=== PATIENT | female | born 1960 | race Caucasian/White ===

== ENCOUNTER 2021-08-01 07:53 | Outpatient (CLI) | payer BC ==
--- NOTE | 2021-08-01 08:12 | XRAY Report ---
PROCEDURE: Finger(s) LT INDICATIONS: L INDEX FINGER PX TECHNIQUE: AP hand, 2 views of the second finger(s) acquired. COMPARISON: None FINDINGS: Bones: Subtle age indeterminant oblique fracture through proximal shaft of second distal phalanx is s een. No other fracture or dislocation. No suspicious bony lesions. Soft tissues: Mild soft tissue swelling surrounding distal portion of second finger is seen. No suspi cious soft tissue calcifications. IMPRESSION: Subtle age indeterminant oblique fracture through proximal shaft/base of second distal phalanx withou t displacement or angulation. Reviewed by: Harley Donahue MD on 08/01/2021 8:11 AM PDT Approved by: Harley Donahue MD on 08/01/2021 8:11 AM PDT Station ID: [id number]
== END 2021-08-01 23:59 | disposition home or self-care (01) ==
LOC: DI.N 07:53
PROVIDERS: ATTEND Family Medicine
DX: S62.661A Nondisplaced fracture of distal phalanx of left index finger, initial encounter for closed fracture (principal)

== ENCOUNTER 2021-10-25 17:44 | Outpatient (CLI) | payer BC ==
[2021-10-25 21:00] LABS: HCT - HEMATOCRIT 43.2 % (37.0-47.0); MEAN CORPUSCULAR HEMOGLOBIN 28.5 pg (27.0-31.0); MEAN CORPUSCULAR HGB CONC 32.4 g/dL (32.0-36.0); MEAN PLATELET VOLUME 11.5 fL (7.9-10.8); RED BLOOD COUNT 4.91 10^6/uL (4.20-5.40); RED CELL DISTRIBUTION WIDTH 12.6 % (12.0-15.0); WHITE BLOOD COUNT 6.3 x10^3/uL (4.8-10.8)
[2021-10-25 21:07] LABS: ALBUMIN 4.4 g/dL (3.2-5.5); ALBUMIN/GLOBULIN RATIO 1.3 (1.0-2.2); BILIRUBIN,TOTAL 0.6 mg/dL (0.2-1.0); CALCIUM 9.5 mg/dL (8.5-10.3); CREATININE 0.8 mg/dL (0.4-1.0); POTASSIUM 3.8 mmol/L (3.5-5.0); TOTAL PROTEIN 7.7 g/dL (6.7-8.2)
[2021-10-25 21:17] LABS: ESTIMATED AVERAGE GLUCOSE 120 mg/dL (70-100); HEMOGLOBIN A1c% 5.8 % (4.27-6.07)
== END 2021-10-25 23:59 | disposition home or self-care (01) ==
LOC: LAB.N 17:44
PROVIDERS: ATTEND Physician Assistant Medical
DX: I10 Essential (primary) hypertension (principal); Z20.822 Contact with and (suspected) exposure to COVID-19
CPT/HCPCS: 36415; 80053; 83036; 84443; 85027

== ENCOUNTER 2022-05-09 10:43 | Outpatient (CLI) | payer BC ==
--- NOTE | 2022-05-09 11:18 | XRAY Report ---
PROCEDURE: Lumbar Spine 2 View INDICATIONS: LOW BACK PAIN TECHNIQUE: 2 views of the lumbar spine were acquired. COMPARISON: None. FINDINGS: Bones: Postoperative changes of pedicular screw and kathy fixation of L4, L5, and S1. Anterior discecto my and fusion is also seen. 5 gmz-qot-jccimlg vertebrae are present. There is normal bony alignment. No vertebral body compression fractures. No suspicious bony lesions. Soft tissues: Overlying bowel gas pattern is normal. No suspicious soft tissue calcifications. IMPRESSION: 1. Postoperative changes spanning from L4 through S1 with no radiographic complication. 2. 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 Reviewed by: Oli De La Garza on 05/09/2022 11:17 AM PDT Approved by: Oli De La Garza on 05/09/2022 11:17 AM PDT Station ID: [id number]
== END 2022-05-09 10:44 | disposition home or self-care (01) ==
LOC: DI 10:43
PROVIDERS: ATTEND Student in an Organized Health Care Education/Training Program
DX: M47.814 Spondylosis without myelopathy or radiculopathy, thoracic region (principal); Z98.1 Arthrodesis status

== ENCOUNTER 2022-07-15 15:36 | Emergency (ER) | payer BC ==
[2022-07-15 15:54] VITALS: BP 151/94
[2022-07-15] MEDS ORDERED: methocarbamoL 500 MG TABLET PO STA (16:11)
[2022-07-15] MEDS ORDERED: KETOROLAC 60 MG/2 ML VIAL IM STA (16:11)
[2022-07-15] MEDS ORDERED: HYDROmorphone 1 MG/ML CARPUJECT IM STA (16:11)
--- NOTE | 2022-07-15 16:16 | ED Physician Documentation ---
PD HPI BACK PAIN - Stated complaint Stated Complaint: BACK PX - Chief complaint Chief Complaint: Back Pain - History obtained from History obtained from: Patient - History of Present Illness Timing - duration: Days (2) Timing - details: Gradual onset Pain level max: 10 Pain level now: 10 Location: Lower, Right Quality: Pain, Spasm, Similar to prior episodes Associated symptoms: No: Fever, Weakness, Numbness, Incontinent of urine, Unable to urinate Improves with: Rest Worsened by: Movement, Lifting Contributing factors: Lifting, Twisting, Out of meds. No: Trauma, Anticoagu lated, Cancer, IVDA - Additional information Additional information: Patient is a 61-year-old female with a history of back fusion, L4 L5-S1. This was about 8 years ago. She states that she has been on "medical leave". She states that she went back to work 2 days ago and since that time has had gradually increasing pain in her back. Mainly on the right. She had been on oxycodone and tizanidine from her doctor, but does not have any more medications at home. Worse with lifting, bending, twisting. Denies any trauma. Not anticoagulated. No IV drug use. Review of Systems Ten Systems: 10 systems reviewed and negative Constitutional: denies: Fever, Chills Nose: denies: Rhinorrhea / runny nose, Congestion Throat: denies: Sore throat Cardiac: denies: Chest pain / pressure, Palpitations Respiratory: denies: Dyspnea, Cough, Wheezing GI: denies: Abdominal Pain, Nausea, Vomiting, Diarrhea : denies: Dysuria, Frequency, Hesitancy, Incontinent Skin: denies: Rash Musculoskeletal: denies: Neck pain Neurologic: denies: Focal weakness, Numbness, Headache PD PAST MEDICAL HISTORY - Past Medical History Past Medical History: No Other Past Medical History: chronic back pain - Past Surgical History Past Surgical History: Yes Ortho: Spine surgery - Present Medications Home Medications: Ambulatory Orders Medication Instructions Recorded Confirmed Meloxicam [Mobic] 7.5 mg PO BID PRN #20 tablet 07/15/22 Ondansetron Odt [Zofran] 4 mg TL Q6H PRN #10 tablet 07/15/22 Oxycodone HCl/Acetaminophen 1 - 2 each PO Q6H PRN #14 tablet 07/15/22 [Percocet 5-325 mg Tablet] methocarbamoL [Robaxin] 500 mg PO Q6H PRN #20 tablet 07/15/22 - Allergies Allergies/Adverse Reactions: Allergies Allergy/AdvReac Type Severity Reaction Status Date / Time No Known Drug Allergies Allergy Verified 07/15/22 15:54 PD ED PE NORMAL - Vitals Vital signs reviewed: Yes - General General: Alert and oriented X 3, No acute distress - HEENT HEENT: Moist mucous membranes - Neck Neck: Supple, no meningeal sign - Cardiac Cardiac: RRR, Strong equal pulses - Respiratory Respiratory: No respiratory distress, Clear bilaterally - Abdomen Abdomen: Soft, Non tender, Non distended - Back Back: No spinal TTP (No midline tenderness to palpation. Paraspinal spasm right lower lumbar. ) - Derm Derm: Warm and dry - Extremities Extremities: No edema, No calf tenderness / cord - Neuro Neuro: Alert and oriented X 3, No motor deficit, No sensory deficit, Other (Normal bilateral lower extremity patellar and ankle jerk reflexes. Normal great toe extension bilaterally. no saddle anesthesia) - Psych Psych: Normal mood, Normal affect Results - Vitals Vitals: Vital Signs - 24 hr 07/15/22 15:50 Temperature 36.4 C L Heart Rate 79 Respiratory 16 Rate Blood Pressure 151/94 H O2 Saturation 96 Oxygen O2 Source Room air - Rads (name of study) L spine xray Radiology: Final report received, EMP read contemporaneously, See rad report PD MEDICAL DECISION MAKING - ED course Complexity details: reviewed results, re-evaluated patient, considered differential (No cauda equina, no spinal epidural abscess, no fracture, no aortic dissection or evidence of aneursym rupture), d/w patient ED course: 61-year-old female presents to the emergency department with low back spasm. Pain and spasm are well controlled after Dilaudid, Toradol, Valium and Robaxin. We will place on pain medication for home. No acute findings on x-ray. Encourage gentle stretching. We will keep her off work until she is cleared by her doctor. No evidence of cauda equina, epidural abscess. No indication for advanced imaging. No paralysis. Patient counseled regarding signs and symptoms for which I believe and urgent re-evaluation would be necessary. Patient with good understanding of and agreement to plan and is comfortable going home at this time This document was made in part using voice recognition software. While efforts are made to proofread this document, sound alike and grammatical errors may occur. Departure - Departure Disposition: 01 Home, Self Care Clinical Impression: Back muscle spasm Condition: Good Instructions: ED Spasm Back No Trauma Follow-Up: JANES OAKES PA [Primary Care Provider] - Within 3 Days Prescriptions: Meloxicam [Mobic] 7.5 mg PO BID PRN #20 tablet PRN Reason: Pain Oxycodone HCl/Acetaminophen [Percocet 5-325 mg Tablet] 1 - 2 each PO Q6H PRN #14 tablet PRN Reason: pain methocarbamoL [Robaxin] 500 mg PO Q6H PRN #20 tablet PRN Reason: muscle spasm Ondansetron Odt [Zofran] 4 mg TL Q6H PRN #10 tablet PRN Reason: Nausea / Vomiting Comments: Please continue to gently stretch her back at home. Please follow-up with your doctor for further care. You will need to be off work again until released by your doctor. Your prescriptions were sent to the [facility] pharmacy in [place] I am prescribing a short course of narcotic pain medication for you. These are potentially dangerous and addictive medications that should be used carefully. These medications may constipate you. Take an iqhg-sxh-aravgco stool softener (docusate) twice daily with plenty of water while taking these medications. If you go 24 hours without a bowel movement, take fcok-nze-mzugbzw miralax, per package instructions. Do not drink or drive while taking these medications. If you received narcotic or sedating medications while in the emergency department, do not drive for 24 hours. Store this medication in a safe, secure place and out of reach of children. It is a violation of federal law to give or sell this medication to another person or to use in a manner other than prescribed. The ED will not refill narcotic prescriptions, including prescriptions lost or stolen. To dispose of unwanted medications: 1. [facility] [address] in [place] has a medication drop box. They accept prescription medications (in pill form) Friday through Friday 9:00 a.m. to 5:00 p.m. 2. The [facility] [employer] accepts prescription medications (in pill form only) for disposal year round. Call for more information. 3. Contact the [facility] for the next [facility] sponsored prescription drug collection event. , [phone], or [phone]; Forms: Activity restrictions Discharge Date/Time: 07/15/22 18:23
[2022-07-15] MEDS ORDERED: ONDANSETRON ODT 4 MG TABLET TL STA (17:05)
[2022-07-15] MEDS ORDERED: diazePAM 5 MG TABLET PO STA (17:07)
--- NOTE | 2022-07-15 17:39 | XRAY Report ---
PROCEDURE: Lumbar Spine 2 View INDICATIONS: back pain, h/o fusion TECHNIQUE: 2 views of the lumbar spine were acquired. COMPARISON: Lumbar spine radiographs 05/09/2022. FINDINGS: Bones: Post surgical changes again seen extending from L4 through S1. Metallic hardware is intact. Os seous alignment is unchanged. 5 tvs-gro-jyzwhjm vertebrae are present. No acute vertebral body comp ression fractures. No suspicious bony lesions. Soft tissues: Overlying bowel gas pattern is normal. No suspicious soft tissue calcifications. IMPRESSION: Stable postsurgical changes in the lower lumbar spine. No acute osseous abnormality. Reviewed by: Иван Chavez MD on 07/15/2022 4:38 PM TERRENCE Approved by: Иван Chavez MD on 07/15/2022 4:38 PM TERRENCE Station ID: [id number]
[2022-07-15] MEDS ORDERED: oxyCODONE/ACET 5/325 Prepack 4 PO STA (18:12)
== END 2022-07-15 18:23 | disposition home or self-care (01) ==
LOC: ED 15:36
DX: M62.830 Muscle spasm of back (principal)
CPT/HCPCS: 72100; 96372; 99284; A9270; J1170; Q0162

== ENCOUNTER 2023-01-16 07:40 | Emergency (ER) | payer BC ==
[2023-01-16 07:53] VITALS: BP 141/115
--- NOTE | 2023-01-16 08:25 | ED Physician Documentation ---
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 She back pain subsequently and increases with attempts at resuming work level of activity.) Review of Systems Constitutional: denies: Fever, Chills Cardiac: denies: Chest pain / pressure, Palpitations Respiratory: denies: Dyspnea, Cough GI: denies: Abdominal Pain, Nausea, Vomiting Skin: denies: Rash, Lesions Neurologic: denies: Focal weakness, Numbness PD PAST MEDICAL HISTORY - Past Medical History Cardiovascular: None Musculoskeletal: Chronic back pain - Past Surgical History Past Surgical History: Yes Ortho: Spine surgery - Present Medications Home Medications: Ambulatory Orders Medication Instructions Recorded Confirmed Meloxicam [Mobic] 7.5 mg PO BID PRN #20 tablet 07/15/22 Ondansetron Odt [Zofran] 4 mg TL Q6H PRN #10 tablet 07/15/22 Oxycodone HCl/Acetaminophen 1 - 2 each PO Q6H PRN #14 tablet 07/15/22 [Percocet 5-325 mg Tablet] methocarbamoL [Robaxin] 500 mg PO Q6H PRN #20 tablet 07/15/22 Acetaminophen [Acetaminophen Extra 500 mg PO QID PRN #50 tablet 01/16/23 Strength] Meloxicam [Mobic] 7.5 mg PO BID 10 Days #20 tablet 01/16/23 dexAMETHasone [Decadron] 4 mg PO DAILY #5 tablet 01/16/23 oxyCODONE [Roxicodone] 5 mg PO Q6H PRN #25 tablet 01/16/23 tiZANidine [Zanaflex] 4 mg PO Q8H PRN #30 tablet 01/16/23 - Allergies Allergies/Adverse Reactions: Allergies Allergy/AdvReac Type Severity Reaction Status Date / Time No Known Drug Allergies Allergy Verified 01/16/23 07:54 PD ED PE NORMAL - Vitals Vital signs reviewed: Yes - General General: Alert and oriented X 3, Well developed/nourished, Other (She seems more emotionally distraught than in pain per se but does have guarded range of motion of the back.) - Abdomen Abdomen: Soft, Non tender - Back Back: No spinal TTP, Other (tender right lower muscules lumbar area. ) - Derm Derm: Normal color, Warm and dry - Neuro Neuro: No motor deficit, No sensory deficit, Other (normal patellar reflexes. ) Results - Vitals Vitals: Vital Signs - 24 hr 01/16/23 07:47 Temperature 36.5 C Heart Rate 80 Respiratory 16 Rate Blood Pressure 141/115 H O2 Saturation 98 Oxygen O2 Source Room air PD Medical Decision Making - ED course Complexity details: considered differential (Has had low back pain previously and exacerbations when resumed work. Review of prior work restriction forms she has with her shows an episode in last January and May and September. She was off work for 2 months at a time each.), d/w patient ED course: Recurrent low back pain without any forceful injury. No red flags on the exam or history. We will treat with medications and work restriction. She has an ap pointment upcoming with her primary care for this but was unable to get an appointment before the . Can give work note for the the interval time. Departure - Departure Disposition: 01 Home, Self Care Clinical Impression: Acute exacerbation of chronic low back pain Condition: Stable Record reviewed to determine appropriate education?: Yes Instructions: ED Spasm Back No Trauma Follow-Up: JANES OAKES PA [Primary Care Provider] - Prescriptions: Acetaminophen [Acetaminophen Extra Strength] 500 mg PO QID PRN #50 tablet PRN Reason: Pain dexAMETHasone [Decadron] 4 mg PO DAILY #5 tablet Meloxicam [Mobic] 7.5 mg PO BID 10 Days #20 tablet oxyCODONE [Roxicodone] 5 mg PO Q6H PRN #25 tablet PRN Reason: Pain tiZANidine [Zanaflex] 4 mg PO Q8H PRN #30 tablet PRN Reason: Spasms Comments: He had massage and stretching and gentle range of motion are all good for the low back muscles. We can treat the flareup of the pain with a combination of anti-inflammatories and muscle relaxant and pain medicine. I would suggest trying Decadron steroid anti-inflammatory daily for the next 5 days initially and then after that changing to meloxicam 7.5 mg twice daily for couple of weeks. Be sure to take all of these with food. Also tizanidine muscle relaxant 3 times daily to help with spasms and stiffness. To this add Tylenol 500 mg 4 times daily for pain. Add oxycodone every 6 hours if needed for worse pain. I sent your prescriptions to [facility] pharmacy as you requested. Follow-up with your primary care on the as planned and sooner if they have an opening for an appointment. I gave you a work note for the next couple of weeks until seen on the . They can determine if any further is needed at that time. I am prescribing a short course of narcotic pain medication for you. These are potentially dangerous and addictive medications that should be used carefully. These medications may constipate you. Take an bcyi-ijz-yeltvha stool softener such as docusate twice daily with plenty of water while taking these medications. If you go 24 hours without a bowel movement, take zylh-pbh-extgwhx MiraLAX, per package instructions. Do not drink or drive while taking these medications. If you received narcotic or sedating medications while in the emergency department do not drive for 24 hours. Store this medication in a safe, secure place and out of reach of children. It is a violation of federal law to give or sell this medication to another person or to use in a manner other than prescribed. The ED will not refill narcotic prescriptions, including prescriptions lost or stolen. You can dispose of unwanted medications at the [facility]'s office or at several pharmacies such as [facility]. Forms: Activity restrictions Discharge Date/Time: 01/16/23 09:15
[2023-01-16] MEDS: ACETAMINOPHEN 325 MG TABLET PO STA (08:48)
[2023-01-16] MEDS: methocarbamoL 500 MG TABLET PO STA (08:48)
[2023-01-16] MEDS: KETOROLAC 30 MG/ML VIAL IM STA (08:49)
== END 2023-01-16 09:15 | disposition home or self-care (01) ==
LOC: ED 07:40
DX: M54.50 Low back pain, unspecified (principal); G89.29 Other chronic pain; Z79.899 Other long term (current) drug therapy
CPT/HCPCS: 96372; 99284; A9270

== ENCOUNTER 2023-04-30 12:30 | Outpatient (CLI) | payer BC, MEDICAID ==
--- NOTE | 2023-04-30 16:49 | XRAY Report ---
PROCEDURE: Foot 3 View LT INDICATIONS: ANKLE JOINT PAIN TECHNIQUE: 3 views of the foot were acquired. COMPARISON: None. FINDINGS: Bones: No fractures or dislocations. No suspicious bony lesions. A calcaneal spurs present. Soft tissues: No suspicious soft tissue calcifications or masses. IMPRESSION: No acute abnormality of the left foot. Reviewed by: Oli De La Garza on 04/30/2023 4:48 PM PDT Approved by: Oli De La Garza on 04/30/2023 4:48 PM PDT Station ID: [id number]
--- NOTE | 2023-05-01 11:46 | XRAY Report ---
PROCEDURE: Ankle 3 View LT INDICATIONS: ANKLE JOINT PAIN LEFT TECHNIQUE: 3 views of the ankle were acquired. COMPARISON: None. FINDINGS: Bones: No fractures or dislocations. Ankle mortise is normally aligned. No suspicious bony lesions . Mild osteoarthritic changes. Calcaneal spurring. Soft tissues: No tibiotalar joint effusion. Achilles tendon appears normal. Soft tissue swelling. IMPRESSION: 1. No acute bony abnormality. 2. Mild osteoarthritis. 3. Calcaneal spurring. 4. Soft tissue swelling. Reviewed by: Robin Joe MD on 05/01/2023 11:44 AM PDT Approved by: Robin Joe MD on 05/01/2023 11:44 AM PDT Station ID: [id number]
== END 2023-04-30 12:45 | disposition home or self-care (01) ==
LOC: DI.N 12:30
PROVIDERS: ATTEND Physician Assistant
DX: M19.072 Primary osteoarthritis, left ankle and foot (principal); M77.32 Calcaneal spur, left foot; R22.42 Localized swelling, mass and lump, left lower limb

== ENCOUNTER 2023-06-04 09:00 | Emergency (ER) | payer BC, MEDICAID ==
[2023-06-04] MEDS ORDERED: SODIUM CHLORIDE 0.9% 1,000 ML IV STA (09:19)
--- NOTE | 2023-06-04 09:21 | ED Physician Documentation ---
PD HPI ABD PAIN - Stated complaint Stated Complaint: FEMALE GI - Chief complaint Chief Complaint: Abd Pain - History obtained from History obtained from: Patient - Additional information Additional information: 62-year-old female with no significant past medical history presents by private vehicle from home for 3 to 4 days of gradually worsening right lower quadrant abdominal pain, worse when she moves her right leg. Associated nausea. States that she thought she might of pulled something but it has gotten gradually worse and is now unbearable. No previous abdominal surgeries. Review of Systems Constitutional: denies: Fever, Chills GI: reports: Abdominal Pain, Nausea. denies: Vomiting : denies: Dysuria, Frequency, Hesitancy Musculoskeletal: reports: Extremity pain. denies: Neck pain, Back pain PD PAST MEDICAL HISTORY - Past Medical History Cardiovascular: None Musculoskeletal: Chronic back pain - Past Surgical History Past Surgical History: Yes Ortho: Spine surgery - Present Medications Home Medications: Ambulatory Orders Medication Instructions Recorded Confirmed Meloxicam [Mobic] 7.5 mg PO BID PRN #20 tablet 07/15/22 Ondansetron Odt [Zofran] 4 mg TL Q6H PRN #10 tablet 07/15/22 Oxycodone HCl/Acetaminophen 1 - 2 each PO Q6H PRN #14 tablet 07/15/22 [Percocet 5-325 mg Tablet] methocarbamoL [Robaxin] 500 mg PO Q6H PRN #20 tablet 07/15/22 Acetaminophen [Acetaminophen Extra 500 mg PO QID PRN #50 tablet 01/16/23 Strength] Meloxicam [Mobic] 7.5 mg PO BID 10 Days #20 tablet 01/16/23 dexAMETHasone [Decadron] 4 mg PO DAILY #5 tablet 01/16/23 oxyCODONE [Roxicodone] 5 mg PO Q6H PRN #25 tablet 01/16/23 tiZANidine [Zanaflex] 4 mg PO Q8H PRN #30 tablet 01/16/23 Cyclobenzaprine [Flexeril] 10 mg PO TID PRN #20 tablet 06/04/23 Oxycodone HCl/Acetaminophen 1 - 2 each PO Q6H PRN #14 tablet 06/04/23 [Percocet 5-325 mg Tablet] cephALEXin [Keflex] 500 mg PO BID #10 cap 06/04/23 - Allergies Allergies/Adverse Reactions: Allergies Allergy/AdvReac Type Severity Reaction Status Date / Time No Known Drug Allergies Allergy Verified 01/16/23 07:54 PD ED PE NORMAL - Vitals Vital signs reviewed: Yes - General General: Alert and oriented X 3, Well developed/nourished, Other (in pain) - Cardiac Cardiac: RRR, Strong equal pulses - Respiratory Respiratory: No respiratory distress, Clear bilaterally - Abdomen Abdomen: Soft, Non tender - Derm Derm: Normal color, Warm and dry, No rash - Extremities Extremities: No deformity, No tenderness to palpate, No edema, Other (RLQ/R leg pain with movement, particularly internal rotation) - Neuro Neuro: Alert and oriented X 3, 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 2-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, No motor deficit, Normal speech Results - Vitals Vitals: Vital Signs - 24 hr 06/04/23 06/04/23 06/04/23 09:07 11:18 12:10 Temperature 36.8 C Heart Rate 66 67 59 L Respiratory 20 20 20 Rate Blood Pressure 147/94 H 157/81 H 140/73 H O2 Saturation 96 100 99 Oxygen O2 Source Room air - Labs Labs: Laboratory Tests 06/04/23 06/04/23 06/04/23 09:16 09:29 09:29 WBC 5.8 RBC 5.12 Hgb 14.6 Hct 44.0 MCV 85.9 MCH 28.5 MCHC 33.2 RDW 12.7 Plt Count 308 MPV 10.6 Neut # (Auto) 2.8 Lymph # (Auto) 2.3 [place] # (Auto) 0.5 Eos # (Auto) 0.2 Baso # (Auto) 0.0 Absolute Nucleated RBC 0.00 Nucleated RBC % 0.0 Sodium 139 Potassium 4.1 Chloride 105 Carbon Dioxide 29 Anion Gap 5.0 L BUN 13 Creatinine 0.8 Estimated GFR (MDRD) 73 L Glucose 110 H Calcium 9.6 Total Bilirubin 0.5 AST 19 ALT 27 Alkaline Phosphatase 76 Total Protein 7.7 Albumin 4.4 Globulin 3.3 Albumin/Globulin Ratio 1.3 Lipase 28 Urine Color YELLOW Urine Clarity HAZY Urine pH 5.5 Ur Specific [place] 1.025 Urine Protein NEGATIVE Urine Glucose (UA) NEGATIVE Urine Ketones NEGATIVE Urine Occult Blood NEGATIVE Urine Nitrite NEGATIVE Urine Bilirubin NEGATIVE Urine Urobilinogen 0.2 (NORMAL) Ur Leukocyte Esterase TRACE H Urine RBC None Seen Urine WBC 4-5 Ur Squamous Epith Cells MOD Squamous H Urine Bacteria Few Ur Microscopic Review INDICATED Urine Culture Comments NOT INDICATED PD Medical Decision Making - ED course Complexity details: reviewed results, re-evaluated patient, considered differential, d/w patient ED course: Right lower quadrant/right lower extremity pain. Abdomen is soft with no rebound or guarding. When patient asked to demonstrate site of maximum pain she points to a spot that is located almost over the pubic bone. No palpable hernia. Will obtain labs and CT imaging. Will give pain medications. Laboratory work is unremarkable. Urinalysis shows infection, however I do not believe that this is the responsible for patient's pain. CT reviewed, reports "probable normal appendix", and with normal labs (no wbc count, no left shift) appendicitis unlikely. Question if musculoskeletal as pain is worst with patient leg movement and with internal rotation of R lower extremity. Will discharge patient on pain medications, muscle relaxers, and abx for UTI. I highly recommended the patient follow-up with her primary care physician for further investigation of this pain. If her symptoms continue or worsen she was encouraged to return to the emergency department for repeat evaluation. Departure - Departure Disposition: 01 Home, Self Care Clinical Impression: Right-sided abdominal pain of unknown etiology Condition: Stable Instructions: Abdominal Pain, ED Sprain Hip Prescriptions: Cyclobenzaprine [Flexeril] 10 mg PO TID PRN #20 tablet PRN Reason: Spasms cephALEXin [Keflex] 500 mg PO BID #10 cap Oxycodone HCl/Acetaminophen [Percocet 5-325 mg Tablet] 1 - 2 each PO Q6H PRN #14 tablet PRN Reason: pain Forms: PCP List Discharge Date/Time: 06/04/23 12:17
[2023-06-04] MEDS ORDERED: ONDANSETRON 4 MG/2 ML VIAL IVP STA (09:24)
[2023-06-04] MEDS ORDERED: MORPHINE 2 MG/ML CARPUJECT IVP STA (09:24)
[2023-06-04 09:45] LABS: BASOPHILS % (AUTO) 0.7 %; EOSINOPHILS # (AUTO) 0.2 10^3/uL (0.0-0.7); EOSINOPHILS % (AUTO) 2.6 %; HGB - HEMOGLOBIN 14.6 g/dL (12.0-16.0); LYMPHOCYTES # (AUTO) 2.3 10^3/uL (1.5-3.5); LYMPHOCYTES % (AUTO) 39.6 %; MEAN CORPUSCULAR HEMOGLOBIN 28.5 pg (27.0-31.0); MEAN CORPUSCULAR HGB CONC 33.2 g/dL (32.0-36.0); MEAN CORPUSCULAR VOLUME 85.9 fL (81.0-99.0); MEAN PLATELET VOLUME 10.6 fL (7.9-10.8); MONOCYTES # (AUTO) 0.5 10^3/uL (0.0-1.0); MONOCYTES % (AUTO) 8.4 %; NEUTROPHILS # (AUTO) 2.8 10^3/uL (1.5-6.6); NEUTROPHILS % (AUTO) 48.4 %; PLT - PLATELET COUNT 308 10^3/uL (130-450); RED BLOOD COUNT 5.12 10^6/uL (4.20-5.40); RED CELL DISTRIBUTION WIDTH 12.7 % (12.0-15.0); WHITE BLOOD COUNT 5.8 x10^3/uL (4.8-10.8)
[2023-06-04 09:59] LABS: ALBUMIN 4.4 g/dL (3.2-5.5); ALBUMIN/GLOBULIN RATIO 1.3 (1.0-2.2); BILIRUBIN,TOTAL 0.5 mg/dL (0.2-1.0); CALCIUM 9.6 mg/dL (8.5-10.3); CREATININE 0.8 mg/dL (0.6-1.3); POTASSIUM 4.1 mmol/L (3.5-4.5); TOTAL PROTEIN 7.7 g/dL (6.4-8.9)
[2023-06-04 10:02] LABS: BILIRUBIN,URINE NEGATIVE (NEGATIVE); GLUCOSE, URINE (UA) NEGATIVE (NEGATIVE); KETONES,URINE (UA) NEGATIVE (NEGATIVE); LEUKOCYTE ESTERASE, URINE TRACE (NEGATIVE); NITRITE,URINE NEGATIVE (NEGATIVE); OCCULT BLOOD,URINE NEGATIVE (NEGATIVE); PH,URINE 5.5 PH (5.0-7.5); PROTEIN,URINE NEGATIVE (NEGATIVE); UROBILINOGEN,URINE 0.2 (NORMAL) E.U./dL (NORMAL)
[2023-06-04 10:03] LABS: CLARITY,URINE HAZY (CLEAR)
[2023-06-04 10:13] LABS: BACTERIA,URINE Few /HPF (None Seen); RBC,URINE None Seen /HPF (0-5); SQUAMOUS EPITHELIAL CELL,UR MOD Squamous (<= Few)
[2023-06-04] MEDS ORDERED: iohexoL-300 100 ML VIAL ONE (10:20)
[2023-06-04] MEDS: MORPHINE 2 MG/ML CARPUJECT IVP STA ×2 (10:56→11:16)
[2023-06-04] MEDS ORDERED: MORPHINE 2 MG/ML CARPUJECT ONE (10:59)
--- NOTE | 2023-06-04 11:25 | CT Report ---
PROCEDURE: ABDOMEN/PELVIS W INDICATIONS: RLQ ABDOMINAL PAIN CONTRAST: Omni 300 100ml TECHNIQUE: After the administration of intravenous contrast, 5 mm thick sections acquired from the diaphragms to the symphysis. 5 mm thick coronal and sagittal reformats were acquired. For radiation dose reducti on, the following was used: automated exposure control, adjustment of mA and/or kV according to timoteo ent size. COMPARISON: None FINDINGS: Image quality: Excellent. Lung bases and heart: Unremarkable. Liver: Mild diffuse hepatic steatosis. No focal mass. Gallbladder and biliary tree: No radiopaque stones or wall thickening. No biliary dilation. Spleen: No splenomegaly. Pancreas: No pancreatic ductal dilation. Adrenals: No adrenal nodule. Kidneys and ureters: No hydronephrosis. No renal cystic lesion which requires follow up. No solid mas s. Bowel and peritoneum: No bowel distension. No pathologic free fluid. A probable normal appendix is id entified. Lymph nodes: No central or retroperitoneal adenopathy. Vessels: No infrarenal aortic aneurysm. PELVIS Reproductive organs: Uterus is surgically absent.. Bladder: No abnormal wall thickening, accounting for underdistension. Pelvic lymph nodes: No pelvic adenopathy by size criteria. Bones: No aggressive osseous abnormality. Remote fusion at L4-S1. Surgical hardware intact. Other: No significant ventral or inguinal hernia. IMPRESSION: 1. A probable normal appendix is identified. 2. No acute abdominal process identified. 3. Mild diffuse hepatic steatosis. Reviewed by: Ady Davis MD on 06/04/2023 11:23 AM PDT Approved by: Ady Davis MD on 06/04/2023 11:23 AM PDT Station ID: [id number]
[2023-06-04] MEDS ORDERED: iohexoL-300 100 ML VIAL IVP ONE (11:39)
[2023-06-04] MEDS ORDERED: CYCLOBENZAPRINE 10 MG TABLET PO STA (11:49)
[2023-06-04] MEDS ORDERED: KETOROLAC 15 MG/ML VIAL IVP STA (11:49)
[2023-06-04 12:13] VITALS: BP 140/73
== END 2023-06-04 12:17 | disposition home or self-care (01) ==
LOC: ED 09:00
DX: R10.31 Right lower quadrant pain (principal); N39.0 Urinary tract infection, site not specified; M79.661 Pain in right lower leg
CPT/HCPCS: 36415; 74177; 80053; 81001; 83690; 85025; 96374; 99283; 99284; A9270; Q9967; 81003; 87086

== ENCOUNTER 2024-01-09 07:13 | Emergency (ER) | payer BC, MEDICAID ==
--- NOTE | 2024-01-09 07:30 | ED Physician Documentation ---
PD HPI BACK PAIN - Stated complaint Stated Complaint: BACK PX - Chief complaint Chief Complaint: Back Pain - History obtained from History obtained from: Patient - History of Present Illness Timing - onset: Yesterday Timing - details: Abrupt onset (slipped on slipery area and fell backward onto buttocks with pain in thoracolumbar area that has persisted and worsened today. hiostry of back surgery lumbar area but not ongoing chronic pain. This is new and is in different area.) Location: Mid, Lower Quality: Pain, Spasm Associated symptoms: No: Weakness, Numbness Worsened by: Movement Contributing factors: Trauma Review of Systems : denies: Incontinent Neurologic: denies: Focal weakness, Numbness PD PAST MEDICAL HISTORY - Past Medical History Past Medical History: Yes Cardiovascular: None Musculoskeletal: Chronic back pain - Past Surgical History Past Surgical History: Yes Ortho: Spine surgery - Present Medications Home Medications: Ambulatory Orders Medication Instructions Recorded Confirmed Meloxicam [Mobic] 7.5 mg PO BID PRN #20 tablet 07/15/22 Ondansetron Odt [Zofran] 4 mg TL Q6H PRN #10 tablet 07/15/22 Oxycodone HCl/Acetaminophen 1 - 2 each PO Q6H PRN #14 tablet 07/15/22 [Percocet 5-325 mg Tablet] methocarbamoL [Robaxin] 500 mg PO Q6H PRN #20 tablet 07/15/22 Acetaminophen [Acetaminophen Extra 500 mg PO QID PRN #50 tablet 01/16/23 Strength] Meloxicam [Mobic] 7.5 mg PO BID 10 Days #20 tablet 01/16/23 dexAMETHasone [Decadron] 4 mg PO DAILY #5 tablet 01/16/23 oxyCODONE [Roxicodone] 5 mg PO Q6H PRN #25 tablet 01/16/23 tiZANidine [Zanaflex] 4 mg PO Q8H PRN #30 tablet 01/16/23 Cyclobenzaprine [Flexeril] 10 mg PO TID PRN #20 tablet 06/04/23 Oxycodone HCl/Acetaminophen 1 - 2 each PO Q6H PRN #14 tablet 06/04/23 [Percocet 5-325 mg Tablet] cephALEXin [Keflex] 500 mg PO BID #10 cap 06/04/23 Meloxicam [Mobic] 7.5 mg PO BID 10 Days #20 tablet 01/09/24 Oxycodone HCl/Acetaminophen 1 each PO Q6H PRN #18 tablet 01/09/24 [Percocet 5-325 mg Tablet] tiZANidine [Zanaflex] 4 mg PO Q8H PRN #25 tablet 01/09/24 - Allergies Allergies/Adverse Reactions: Allergies Allergy/AdvReac Type Severity Reaction Status Date / Time No Known Drug Allergies Allergy Verified 01/09/24 07:26 - Social History Does the pt smoke?: No Smoking Status: Never smoker Does the pt drink ETOH?: No Does the pt have substance abuse?: No - Immunizations Immunizations are current?: Yes - POLST Patient has POLST: No PD ED PE NORMAL - Vitals Vital signs reviewed: Yes - General General: Alert and oriented X 3, Well developed/nourished, Other (appears in pain from thoracolumbar area. ) - Respiratory Respiratory: No respiratory distress, Clear bilaterally, Other (no chestwall tenderness) - Abdomen Abdomen: Soft, Non tender - Back Back: Other (tender in thoracolumbar to low thoracic area midline and some in lateral muscles as well. No noted deformity. ) - Derm Derm: Normal color, Warm and dry - Neuro Neuro: Alert and oriented X 3, No motor deficit, No sensory deficit, Normal speech Results - Vitals Vitals: Vital Signs - 24 hr 01/09/24 01/09/24 01/09/24 07:22 09:30 12:05 Temperature 36.2 C L Heart Rate 56 L 51 L 48 L Respiratory 20 16 20 Rate Blood Pressure 169/77 H 132/67 H 134/73 H O2 Saturation 97 93 94 01/09/24 01/09/24 12:33 13:25 Temperature Heart Rate 45 L 62 Respiratory 18 16 Rate Blood Pressure 145/75 H 169/71 H O2 Saturation 98 99 Oxygen O2 Source Room air - Rads (name of study) thoracic and lumbar xrays Relevant Findings:: Prelim report reviewed (possible compression deformity T 11. Hardwarde lumbar area appears undisrupted. ), EMP independent interpretation of test thoracic spine CT Relevant Findings:: Prelim report reviewed (no acute injury.), EMP independent interpretation of test PD Medical Decision Making - ED course Complexity details: reviewed results, re-evaluated patient (pain lessened with IV meds. Given repeat dosing for stepwisde improvement. ), considered differential (fell to buttocks with thoracolumbar pain. Not in are of prior surgeries, but does have rods in low back. Consider compressive deformity, etc.), d/w patient, d/w PMD (With hardware in place, I felt screen plain xray films would be more accurate without scatter. With that done, and concern for T 11 compression, I could then get CT of that area. This showed no acute injury though. ) Reviewed Lab Results: consider fracture on plain films, but excluded on CT. Still hurting though. SPrain strain type injury. Departure - Departure Disposition: 01 Home, Self Care Clinical Impression: Acute exacerbation of chronic low back pain, Fall from slipping on ice Condition: Stable Record reviewed to determine appropriate education?: Yes Instructions: ED Low Back Pain Injury Follow-Up: JANES OAKES PA [Primary Care Provider] - Prescriptions: Meloxicam [Mobic] 7.5 mg PO BID 10 Days #20 tablet Oxycodone HCl/Acetaminophen [Percocet 5-325 mg Tablet] 1 each PO Q6H PRN #18 tablet PRN Reason: pain tiZANidine [Zanaflex] 4 mg PO Q8H PRN #25 tablet PRN Reason: Spasms Comments: Your x-rays and CT scan did not show any acute bony abnormalities. The hardware in your back is in good position without any dislodgment. You can still have a lot of pain in the back related to injury of prior scar tissue as well as arthritis and muscles and discs. Heat stretching are good. Physical modalities such as chiropractic could be useful as well. I prescribed some anti-inflammatories as well as muscle relaxant for you. To that add Tylenol 500 to 650 mg 4 times a day regularly for pain and add oxycodone/acetaminophen every 6 hours if needed for worse pain. I sent prescriptions to preferred pharmacy. The electronic prescribing to [facility] is not working for controlled substances. I printed it for you instead. When you drop off the prescription, let them know their e-prescribing was not working. Recheck if not improving well over the next few days. I am prescribing a short course of narcotic pain medication for you. These are potentially dangerous and addictive medications that should be used carefully. These medications may constipate you. Take an [id number] stool softener such as docusate twice daily with plenty of water while taking these medications. If you go 24 hours without a bowel movement, take [id number] MiraLAX, per package instructions. Do not drink or drive while taking these medications. If you received narcotic or sedating medications while in the emergency department do not drive for 24 hours. Store this medication in a safe, secure place and out of reach of children. It is a violation of federal law to give or sell this medication to another person or to use in a manner other than prescribed. The ED will not refill narcotic prescriptions, including prescriptions lost or stolen. You can dispose of unwanted medications at the [facility]'s office or at several pharmacies such as [facility]. Forms: Activity restrictions Discharge Date/Time: 01/09/24 13:29
[2024-01-09] MEDS: HYDROmorphone 1 MG/ML CARPUJECT IVP STA ×2 (08:08→09:19)
[2024-01-09] MEDS: ONDANSETRON 4 MG/2 ML VIAL IVP STA (08:08)
[2024-01-09] MEDS: KETOROLAC 15 MG/ML VIAL IVP STA (08:08)
--- NOTE | 2024-01-09 08:53 | XRAY Report ---
PROCEDURE: Thoracic Spine 2V INDICATIONS: fall backward; low/mid back pain TECHNIQUE: 3 views of the thoracic spine were acquired. COMPARISON: None. FINDINGS: Bones: Question very subtle acute T11 compression fracture. No suspicious bony lesions. 12 pairs of ribs are noted, and appear intact where visualized. Soft tissues: No paravertebral stripe thickening. IMPRESSION: Question very subtle acute T11 compression fracture. Comment: Consider nonemergent MRI for verification of potential acute T11 fracture. Reviewed by: Ady Davis MD on 01/09/2024 8:52 AM PST Approved by: Ady Davis MD on 01/09/2024 8:52 AM PST Station ID: [id number]
--- NOTE | 2024-01-09 08:54 | XRAY Report ---
PROCEDURE: Lumbar Spine 2-3V INDICATIONS: fall backward, low/mid back pain TECHNIQUE: 3 views of the lumbar spine were acquired. COMPARISON: None. FINDINGS: Bones: 5 beo-vpv-ubkvryw vertebrae are present. There is normal bony alignment. Expected appearance of orthopedic hardware, status post anterior and posterior fixation at L4-S1. Question very subtle a cute T11 compression fracture. No suspicious bony lesions. Soft tissues: Overlying bowel gas pattern is normal. No suspicious soft tissue calcifications. IMPRESSION: Question very subtle acute T11 compression fracture. This is not definite. No lumbar compressions. Reviewed by: Ady Davis MD on 01/09/2024 8:52 AM PST Approved by: Ady Davis MD on 01/09/2024 8:52 AM PST Station ID: [id number]
--- NOTE | 2024-01-09 10:24 | CT Report ---
PROCEDURE: Thoracic Spine WO INDICATIONS: possible new/further compressed T11 post fall TECHNIQUE: Noncontrast 3 mm thick sections acquired through the region of interest in the thoracic spine. Sagit yohan and coronal reformats were then constructed. For radiation dose reduction, the following was used : automated exposure control, adjustment of mA and/or kV according to patient size. COMPARISON: Correlation is made with the accompanying imaging. Correlation is made with the overlapp ing portions of the abdomen and pelvis CT, 06/04/2023. FINDINGS: Image quality: Excellent. Bones: There is straightening T11 vertebral body. No fracture lines can be seen within the T11 verte bral body. No fractures are seen elsewhere. There is accentuated thoracic kyphosis. No significant AP alignment abnormality can be seen. Age-a ppropriate degenerative changes are seen. No suspicious sclerotic or lytic bony lesions. Central spinal canal is of normal overall caliber. Soft tissues: No paravertebral masses or hematomas. Visualized posteromedial lungs appear clear. IMPRESSION: No T11 fracture is seen. No fractures are seen elsewhere. Reviewed by: Gerard Zapata MD on 01/09/2024 9:23 AM [facility] Approved by: Gerard Zapata MD on 01/09/2024 9:23 AM [facility] Station ID: [id number]
[2024-01-09] MEDS: HYDROmorphone 0.5 MG/0.5 ML SYRINGE IVP STA (11:51)
[2024-01-09] MEDS: diazePAM INJ 5 MG/ML SYRINGE IVP STA (11:51)
[2024-01-09 13:26] VITALS: BP 169/71; O2SAT 99
== END 2024-01-09 13:29 | disposition home or self-care (01) ==
LOC: ED 07:13
DX: M54.50 Low back pain, unspecified (principal); W00.0XXA Fall on same level due to ice and snow, initial encounter; Z79.899 Other long term (current) drug therapy
CPT/HCPCS: 72070; 72100; 72128; 96374; 96375; 96376; 99284; 99285; J1170

== ENCOUNTER 2024-05-05 08:00 | Outpatient (CLI) | payer BC ==
[2024-05-06 00:21] LABS: BACTERIAL VAGINOSIS DNA POSITIVE (NEGATIVE); CANDIDA GLABRATA DNA NEGATIVE (NEGATIVE); CANDIDA GROUP DNA NEGATIVE (NEGATIVE); CANDIDA KRUSEI DNA NEGATIVE (NEGATIVE); TRICHOMONAS VAGINALIS DNA NEGATIVE (NEGATIVE)
== END 2024-05-05 23:59 | disposition home or self-care (01) ==
LOC: LAB.N 08:00
PROVIDERS: ATTEND Physician Assistant Medical
DX: N39.0 Urinary tract infection, site not specified (principal); N89.8 Other specified noninflammatory disorders of vagina
CPT/HCPCS: 81514; 87086

== ENCOUNTER 2024-05-07 10:53 | Outpatient (CLI) | payer BC ==
[2024-05-07 11:06] LABS: BASOPHILS % (AUTO) 0.7 %; EOSINOPHILS # (AUTO) 0.1 10^3/uL (0.0-0.7); EOSINOPHILS % (AUTO) 2.2 %; HCT - HEMATOCRIT 41.5 % (37.0-47.0); HGB - HEMOGLOBIN 13.2 g/dL (12.0-16.0); LYMPHOCYTES # (AUTO) 2.1 10^3/uL (1.5-3.5); LYMPHOCYTES % (AUTO) 38.4 %; MEAN CORPUSCULAR HEMOGLOBIN 28.1 pg (27.0-31.0); MEAN CORPUSCULAR HGB CONC 31.8 g/dL (32.0-36.0); MEAN CORPUSCULAR VOLUME 88.5 fL (81.0-99.0); MEAN PLATELET VOLUME 10.8 fL (7.9-10.8); MONOCYTES # (AUTO) 0.4 10^3/uL (0.0-1.0); MONOCYTES % (AUTO) 6.9 %; NEUTROPHILS # (AUTO) 2.8 10^3/uL (1.5-6.6); NEUTROPHILS % (AUTO) 51.6 %; PLT - PLATELET COUNT 271 10^3/uL (130-450); RED BLOOD COUNT 4.69 10^6/uL (4.20-5.40); RED CELL DISTRIBUTION WIDTH 12.6 % (12.0-15.0); WHITE BLOOD COUNT 5.4 x10^3/uL (4.8-10.8)
[2024-05-07 11:18] LABS: CALCIUM 9.4 mg/dL (8.5-10.3); CREATININE 0.8 mg/dL (0.6-1.3); POTASSIUM 3.6 mmol/L (3.5-4.5)
[2024-05-07 12:41] LABS: ESTIMATED AVERAGE GLUCOSE 114 mg/dL (70-100); HEMOGLOBIN A1c% 5.6 % (4.27-6.07)
== END 2024-05-07 10:54 | disposition home or self-care (01) ==
LOC: LAB 10:53
PROVIDERS: ATTEND Physician Assistant Medical
DX: Z86.39 Personal history of other endocrine, nutritional and metabolic disease (principal)
CPT/HCPCS: 36415; 80048; 83036; 85025